=== PATIENT | male | born 1980 | race Two or more races ===

== ENCOUNTER 2019-04-20 14:11 | Emergency (ER) | payer MEDICAID ==
[~2019-04-20] VITALS: Ht 167.6 cm; Wt 70.3 kg
[2019-04-20] MEDS ORDERED: NKM (14:35)
[2019-04-20 14:40] VITALS: BP 120/69
--- NOTE | 2019-04-20 14:40 | NUR ---
ED Nurse Note: pt [facility] per pt, on ladder for painting. ladder lose balance and sliding down from ladder. multiple abrasion noted on right side of face, shoulder, back. pt also c/o abdominal pain. no n/v/d. pt denies headache or blurred vision. RN instructed pt to be supine position on bed. kayla wait for the further order.
[2019-04-20] MEDS ORDERED: Isovue-300 100ml vial INJ PRN (15:00)
[2019-04-20] MEDS ORDERED: Morphine Sulfate 4mg/ml Inj (IV USE ONLY) IVP ONE (15:00)
[2019-04-20 15:25] LABS: BASOPHILS % (AUTO) 0.4 % (0.0-2.0); EOSINOPHILS % (AUTO) 0.2 % (0.0-3.0); HEMATOCRIT 39.1 % (42.0-52.0); HEMOGLOBIN 14.1 G/DL (14.2-18.0); LYMPHOCYTES % (AUTO) 8.8 % (20.0-45.0); MEAN CORPUSCULAR VOLUME 85 FL (80-99); MONOCYTES % (AUTO) 6.4 % (1.0-10.0); NEUTROPHILS % (AUTO) 84.4 % (45.0-75.0); PLATELET COUNT 222 K/UL (150-450); RED BLOOD COUNT 4.58 M/UL (4.70-6.10); WHITE BLOOD COUNT 11.5 K/UL (4.8-10.8)
[2019-04-20 15:32] LABS: INR 0.9 (0.9-1.1)
[2019-04-20 15:34] LABS: ANION GAP 6 mmol/L (5-15); BLOOD UREA NITROGEN 22 mg/dL (7-18); CALCIUM 9.3 MG/DL (8.5-10.1); CARBON DIOXIDE 29 MMOL/L (21-32); CHLORIDE 104 MMOL/L (98-107); CREATININE 1.4 MG/DL (0.55-1.30); POTASSIUM 3.8 MMOL/L (3.5-5.1); SODIUM 139 MMOL/L (136-145)
[2019-04-20 15:39] LABS: ALANINE AMINOTRANSFERASE 34 U/L (12-78); ALBUMIN 4.2 G/DL (3.4-5.0); ALBUMIN/GLOBULIN RATIO 1.4 (1.0-2.7); ALKALINE PHOSPHATASE 62 U/L (46-116); ASPARTATE AMINO TRANSFERASE 21 U/L (15-37); BILIRUBIN,TOTAL 0.9 MG/DL (0.2-1.0)
--- NOTE | 2019-04-20 15:45 | Diagnostic Imaging Report ---
Indication: Pain, status post fall from ladder Technique: Spiral acquisitions obtained through the cervical spine. No IV contrast utilized. Multiplanar reconstructions were generated. Total dose length product 1724.4 mGycm. CTDIvol(s) 70.38,17.18 mGy. Dose reduction achieved using automated exposure control. Comparison: none Findings: Bony alignment is normal. Vertebral body heights are preserved. The disc spaces are preserved. No acute fractures. No dislocations. No significant disc bulge or protrusion, spinal stenosis, or neural foraminal stenosis demonstrated. Included extra spinal soft tissues are unremarkable. The upper aerodigestive tract is unremarkable. Impression: Negative The CT scanner at [facility] is accredited by the [employer] and the scans are performed using protocols designed to limit radiation exposure to as low as reasonably achievable to attain images of sufficient resolution adequate for diagnostic evaluation.
--- NOTE | 2019-04-20 15:56 | Diagnostic Imaging Report ---
Indications: Head pain, head injury, right frontal head abrasion, status post fall from ladder Technique: Spiral acquisitions obtained through the brain. Angled axial and coronal 5 x 5 mm slices were reconstructed. Total dose length product 1724.4 mGycm. CTDI vol(s) 70.38,17.18 mGy. Dose reduction achieved using automated exposure control Comparison: None. Findings: No acute intracranial hemorrhage or edema, mass effect, nor midline shift. Normal condon-white differentiation. Normal-sized ventricles and extra-axial CSF spaces. Tiny calcification at the roof of the third ventricle may indicate a small colloid cyst. Visualized orbits and sinuses are unremarkable. The calvarium is intact. The mastoids are clear. Impression: Negative for acute intracranial bleed or mass effect The CT scanner at [facility] is accredited by the [employer] and the scans are performed using protocols designed to limit radiation exposure to as low as reasonably achievable to attain images of sufficient resolution adequate for diagnostic evaluation.
--- NOTE | 2019-04-20 15:57 | Diagnostic Imaging Report ---
Indication: Pain status post fall Technique: 3 views of the left shoulder Comparison: None Findings: No acute fractures or dislocations. Joint spaces are preserved. Impression: Negative
--- NOTE | 2019-04-20 17:10 | Emergency Room Report ---
History of Present Illness General Chief Complaint: Multiple Trauma/Fall Source: Patient Present Illness HPI 38-year-old male presents ED for evaluation. Patient walked in status post fall. States he fell from a ladder about 10 feet to the ground landing on a wooden beam. States that he also hit his head. Complaining of shoulder pain and back and side pain. Dull, 8 out of 10, nonradiating. Denies photophobia or blurry vision. Denies nausea or vomiting. No other aggravating relieving factors. Denies any other associated symptoms Allergies: Coded Allergies: No Known Allergies (Unverified , 04/20/19) Patient History Past Medical History: none Past Surgical History: none Pertinent Family History: none Social History: Denies: smoking, alcohol use, drug use Immunizations: UTD Reviewed Nursing Documentation: PMH: Agreed; PSxH: Agreed Nursing Documentation-PMH Past Medical History: No Stated History Review of Systems All Other Systems: negative except mentioned in HPI Physical Exam Vital Signs Date Time Temp Pulse Resp B/P (MAP) Pulse Ox O2 Delivery O2 Flow Rate FiO2 04/20/19 14:29 98.2 57 16 120/69 (86) 98 Room Air Sp02 EP Interpretation: reviewed, normal General Appearance: no apparent distress, alert, GCS 15, non-toxic Head: normocephalic, other - abrasions to forehead Eyes: bilateral eye normal inspection, bilateral eye PERRL ENT: hearing grossly normal, normal pharynx, no angioedema, normal voice Neck: full range of motion, supple/symm/no masses, tender lateral Respiratory: chest non-tender, lungs clear, normal breath sounds, speaking full sentences Cardiovascular #1: regular rate, rhythm, no edema Gastrointestinal: normal bowel sounds, soft, non-distended, no guarding, no rebound, tenderness Rectal: deferred Genitourinary: no CVA tenderness Musculoskeletal: normal inspection Neurologic: alert, oriented x3, responsive, motor strength/tone normal, sensory intact, speech normal Psychiatric: normal inspection Skin: normal inspection Lymphatic: normal inspection Medical Decision Making Diagnostic Impression: Primary Impression: Lumbar transverse process fracture Qualified Codes: S32.009A - Unspecified fracture of unspecified lumbar vertebra, initial encounter for closed fracture Additional Impressions: Contusion of soft tissue Multiple injuries due to trauma ER Course Hospital Course 38-year-old M presents to ED complaining of multiple injuries s/p fall > 10 feet Differential diagnoses include: Fracture, dislocation, sprain, contusion Clinical course Patient placed on stretcher. After initial history and physical, I ordered pain medications, labs, and multple imaging studies labs unremarkable CT head and Cspine negative R shoulder xray negative CT Chest/abd/Pelvis - L3 transverse process fx. soft tissue contusion Discussed findings with patient. On reassessment pain is improved. Patient has no focal deficits. Walking without difficulty. Safe for discharge for close outpatient follow-up. Will prescribe pain medications. Does not have a PMD. Will provide referrals Diagnosis - lumbar transverse process fracture, soft tissue contsuion, multiple injuries due to trauma Stable and discharged to home with prescription for Motrin, [place], Lidoderm, Robaxin. apply ice, keep elevated. weight bear as tolerated. Followup with PMD. Return to ED if symptoms recur or worsen Labs Test 04/20/19 15:00 White Blood Count 11.5 K/UL (4.8-10.8) Red Blood Count 4.58 M/UL (4.70-6.10) Hemoglobin 14.1 G/DL (14.2-18.0) Hematocrit 39.1 % (42.0-52.0) Mean Corpuscular Volume 85 FL (80-99) Mean Corpuscular Hemoglobin 30.8 PG (27.0-31.0) Mean Corpuscular Hemoglobin Concent 36.1 G/DL (32.0-36.0) Red Cell Distribution Width 11.0 % (11.6-14.8) Platelet Count 222 K/UL (150-450) Mean Platelet Volume 6.5 FL (6.5-10.1) Neutrophils (%) (Auto) 84.4 % (45.0-75.0) Lymphocytes (%) (Auto) 8.8 % (20.0-45.0) Monocytes (%) (Auto) 6.4 % (1.0-10.0) Eosinophils (%) (Auto) 0.2 % (0.0-3.0) Basophils (%) (Auto) 0.4 % (0.0-2.0) Prothrombin Time 10.1 SEC (9.30-11.50) Prothromb Time International Ratio 0.9 (0.9-1.1) Activated Partial Thromboplast Time 25 SEC (23-33) Sodium Level 139 MMOL/L (136-145) Potassium Level 3.8 MMOL/L (3.5-5.1) Chloride Level 104 MMOL/L (98-107) Carbon Dioxide Level 29 MMOL/L (21-32) Anion Gap 6 mmol/L (5-15) Blood Urea Nitrogen 22 mg/dL (7-18) Creatinine 1.4 MG/DL (0.55-1.30) Estimat Glomerular Filtration Rate 56.7 mL/min (>60) Glucose Level 97 MG/DL (74-106) Calcium Level 9.3 MG/DL (8.5-10.1) Total Bilirubin 0.9 MG/DL (0.2-1.0) Aspartate Amino Transf (AST/SGOT) 21 U/L (15-37) Alanine Aminotransferase (ALT/SGPT) 34 U/L (12-78) Alkaline Phosphatase 62 U/L (46-116) Total Protein 7.3 G/DL (6.4-8.2) Albumin 4.2 G/DL (3.4-5.0) Globulin 3.1 g/dL Albumin/Globulin Ratio 1.4 (1.0-2.7) Other X-Ray Diagnostic Results Other X-Ray Diagnostic Results : X-Ray ordered: R shoulder # of Views/Limited Vs Complete: 3 View Indication: Pain EP Interpretation: Yes Interpretation: no dislocation, no soft tissue swelling, no fractures Impression: No acute disease Electronically Signed by: Electronically signed by Jarrte Shaffer MD CT/MRI/US Diagnostic Results CT/MRI/US Diagnostic Results #1: Imaging Test Ordered: CT Head Impression no acute process CT/MRI/US Diagnostic Results #2: Imaging Test Ordered: CT C spine Impression no acute process CT/MRI/US Diagnostic Results #3: Imaging Test Ordered: CT Chest/Abd/Pelvis Impression L3 transverse process fx. right lower flank/upper buttock soft tissue contusion Last Vital Signs Date Time Temp Pulse Resp B/P (MAP) Pulse Ox O2 Delivery O2 Flow Rate FiO2 04/20/19 14:40 98.2 57 16 120/69 98 Room Air Status: improved Disposition: HOME, SELF-CARE Condition: Stable Scripts Methocarbamol* (ROBAXIN-750*) 750 Mg Tablet 750 MG PO TID, #21 TAB 0 Refills Prov: Jarret Shaffer MD 04/20/19 Lidocaine (Lidoderm) 1 Each Adh..patch 1 PATCH TOPIC DAILY, #7 PATCH 0 Refills Patch(es) may remain in place for up to 12 hours in any 24-hour period. Prov: Jarret Shaffer MD 04/20/19 Hydrocodone Bit/Acetaminophen 5-325* (NORCO 5-325*) 1 Each Tablet 1 TAB ORAL Q6H PRN for For Pain, #10 TAB 0 Refills Prov: Jarret Shaffer MD 04/20/19 Ibuprofen* (MOTRIN*) 600 Mg Tablet 600 MG ORAL Q8H PRN for For Pain, #30 TAB 0 Refills Prov: Jarret Shaffer MD 04/20/19 Jarret Shaffer MD Apr 20, 2019 17:10
--- NOTE | 2019-04-20 17:18 | Diagnostic Imaging Report ---
CLINICAL INDICATION:Trauma, status post fall from ladder, pain TECHNIQUE: No oral contrast, per emergency room physician request. IV administration nonionic contrast Spiral acquisitions obtained through the chest, abdomen, and pelvis. Multiplanar reconstructions were generated. Total dose length product 1404.64 mGycm. CTDIvol(s) 16.29,13.53 mGy. Radiation dose was minimized using automated exposure control COMPARISON: none FINDINGS Chest: The bones are unremarkable. No fractures are evident. No evidence of significant soft tissue contusion 2 mm nodule is seen in the left upper lobe, image 41 series 7. 4 mm irregular opacity is seen along the minor fissure on the right, image 47 series 7, probably represents a small pleural node. There are minimal posterior dependent atelectatic changes. The lungs and pleural spaces are otherwise clear. No infiltrates, effusions, or masses. No pneumothorax. No mediastinal or hilar mass or adenopathy. The heart size is normal. No evidence of substernal hematoma. No axillary or chest wall mass or adenopathy. The thyroid is unremarkable. Abdomen pelvis: There is a nondisplaced fracture of the right L3 transverse process. No other acute fractures. No dislocations. The joint spaces are preserved. There there is increased attenuation of the subcutaneous fat of the right lower flank and upper buttock region. No evidence of intra-abdominal hematoma demonstrated. The liver demonstrates focal fatty change in the usual location adjacent to the falciform ligament, is otherwise unremarkable. The gallbladder, bile ducts, pancreas, spleen, adrenals are unremarkable. The left kidney demonstrates a subcentimeter upper pole lesion which is very low in attenuation. The kidneys are otherwise unremarkable. No retroperitoneal or mesenteric mass or adenopathy. No pelvic mass or adenopathy. No evidence of diverticulosis or diverticulitis. The appendix is not visualized, but no findings to suggest acute appendicitis are evident. No small bowel distention. No free or loculated intraperitoneal gas or fluid is evident. IMPRESSION: Positive for nondisplaced fracture of the right L3 transverse process Evidence of right lower flank/upper buttock soft tissue contusion involving the subcutaneous fat No other significant post traumatic abnormality demonstrated. No evidence of pulmonary or mediastinal injury or solid organ trauma 2 mm left upper lobe nodule. If there is no associated smoking history or risk factors for lung carcinoma, no further follow-up is necessary. 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
[2019-04-20] MEDS ORDERED: NORCO 5-325 TA1 EACH ORAL (17:39)
[2019-04-20] MEDS ORDERED: LIDODERM700 M1 TOPIC (17:39)
[2019-04-20] MEDS ORDERED: IBUPROFEN600 MG ORAL (17:39)
[2019-04-20] MEDS ORDERED: ROBAXIN-750750 MG PO (17:39)
--- NOTE | 2019-04-20 17:47 | NUR ---
ER DISCHARGE NOTE: Patient is cleared to be discharged per ERMD with sister, pt is aox4, on room air, with stable vital signs. pt was given dc and prescription instructions, pt was able to verbalize understanding, pt id band and iv site removed without complications. pt is able to ambulate with steady gait. pt took all belongings.
== END 2019-04-20 17:48 | disposition home or self-care (01) ==
LOC: EMR 15:01
DX: S32.039A Unspecified fracture of third lumbar vertebra, initial encounter for closed fracture (principal); S30.1XXA Contusion of abdominal wall, initial encounter; S30.0XXA Contusion of lower back and pelvis, initial encounter; S49.91XA Unspecified injury of right shoulder and upper arm, initial encounter; W11.XXXA Fall on and from ladder, initial encounter; Y92.89 Other specified places as the place of occurrence of the external cause
CPT/HCPCS: 36415; 70450; 71260; 72125; 73030; 74177; 80053; 85025; 85610; 85730; 86850; 86900; 86901; 96374; 99284; J2270; Q9967